=== PATIENT | female | born 1985 | race African-American/Black ===

== ENCOUNTER 2020-02-27 14:04 | Emergency (ER) | payer MEDICAID, SELFPAY ==
[2020-02-27 14:09] VITALS: BP 121/83; PULSE 76; RESP 18; TEMP 36.8; O2SAT 99; BMI 29.5
--- NOTE | 2020-02-27 14:19 | [facility].COUGH ---
Cough Clinic HPI - History of Present Illness HPI:: 35 year old female patient presents to the cough clinic today with a one day history of sore throat and fever to 102. She denies cough and runny nose. 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 Home Medications: Home Medications Medication Instructions Recorded Confirmed Type Azithromycin [Zithromax 250mg 250 mg PO DIRECTED #6 tab 02/27/20 Rx tab] Fluconazole [Diflucan 150mg tab] 150 mg PO ONCE #1 tab 02/27/20 Rx Allergies/Adverse Reactions: Allergies Allergy/AdvReac Type Severity Reaction Status Date / Time penicillin G Allergy Severe Anaphylaxis Verified 11/29/19 11:11 Cough Clinic Triage - Symptoms Fever History: Yes (102) Chills: No Myalgia: No Nasal Drainage: No Sore Throat: Yes Productive Cough: No Non-productive Cough: No Ear or Sinus Pain: No Joint Pain: No Chest Pain: No Rash: No Shortness of Breath: No Nausea or Vomitting: No Headache: Yes Abdominal Pain: No Diarrhea: No - Exposure History Foreign Travel: No Direct Contact with COVID-19 Patient: No - Risk Factors Greater than 60 Years Old: No COPD: No Diabetes: No Heart Disease: No Home Oxygen Use: No Chronic Renal Disease: No Chronic Liver Disease: No Neurologic/Neurodevelopmental/intellectual disability: No Other Chronic Diseases: No If Female, currently : No Current Smoker: No Former Smoker: No Cough Clinic History Other Surgeries: Yes: No Previous Surgery Amputation: No Fractures: No - Social History Smoking Status: Never smoker Alcohol Intake: never Substance Use Type: denies use Occupational Status: employed Family Hx:: No significant family history - Constitutional Constitutional: Denies fatigue - Gastrointestinal Gastrointestingal: Denies: diarrhea Cough Clinic Exam - General General appearance: alert - Head Head exam: atraumatic, normocephalic, normal inspection - Eye Eye exam: Present: normal appearance, PERRL, EOMI - ENT ENT exam: Present: normal exam, mucous membranes moist, TM's normal bilaterally, normal external ear exam - Expanded ENT Exam Throat exam: Present: tonsillar erythema - Neck Neck exam: Present: normal inspection, full ROM, trachea midline, lymphadenopathy. Absent: meningismus - Respiratory Respiratory exam: Present: normal lung sounds bilaterally. Absent: respiratory distress - Cardiovascular Cardiovascular exam: Present: regular rate, normal rhythm. Absent: JVD - Extremities Exam Extremities exam: Present: normal inspection, full ROM, normal capillary refill. Absent: calf tenderness - Neurological Exam Neurological exam: Present: alert, oriented X3 - Skin Skin exam: Present: warm, dry, intact, normal color - Lymphatic Lymphatic Findings: no adenopathy Cough Clinic MDM Vital Signs: 02/27/20 14:09 02/27/20 14:50 Temperature 98.3 F 98.3 F Temperature Source Oral Oral Pulse Rate 76 Pulse Rate [Right Brachial] 76 Respiratory Rate 18 18 Blood Pressure 121/83 Blood Pressure [Right Arm] 121/83 Blood Pressure Mean [Right Arm] 95 Blood Pressure Source Automatic Cuff Blood Pressure Source [Right Arm] Automatic Cuff Blood Pressure Position Sitting Blood Pressure Position [Right Arm] Sitting 02 Sat by Pulse Oximetry 99 Oxygen Delivery Method Room Air - Lab Data Lab results reviewed: Yes: I reviewed the patient's lab results. Lab Results 02/27/20 14:16: WBC 5.9, RBC 4.37, Hgb 12.2, Hct 40.2, MCV 92.0, MCH 28.0, MCHC 30.4 L, RDW 12.3, Plt Count 265, MPV 8.2, Neut % (Auto) 60.9, Lymph % (Auto) 29.0, Callahan % (Auto) 5.7, Eos % (Auto) 3.5, Baso % (Auto) 0.8, Neut # (Auto) 3.6, Lymph # (Auto) 1.7, Callahan # (Auto) 0.3, Eos # (Auto) 0.2, Baso # (Auto) 0.1 02/27/20 14:16: Group A Strep Rapid Negative 02/27/20 14:16: Influenza Type A Ag Negative, Influenza Type B Ag Negative Orders (Tests/Meds): ORDERS Category Date Time Status Strep Scre
[2020-02-27 14:25] LABS: Hematocrit 40.2 % (37.0-47.0); Hemoglobin 12.2 g/dL (12.2-16.2); Mean Corpuscular HGB Conc 30.4 g/dL (31.8-35.4); Mean Platelet Volume 8.2 fl (7.4-10.4); Monocytes % 5.7 % (1.7-9.3); Neutrophils % 60.9 % (37.0-80.0); Platelet Count 265 K/mm3 (142-424); Red Blood Count 4.37 M/mm3 (4.20-5.40); Red Cell Distribution Width 12.3 % (11.5-17.5); White Blood Count 5.9 K/mm3 (4.8-10.8)
[2020-02-27 14:26] LABS: Basophils # 0.1 K/mm3 (0-0.2); Basophils % 0.8 % (0.1-2.0); Eosinophils # 0.2 K/mm3 (0.0-0.4); Eosinophils % 3.5 % (0.1-12.0); Lymphocytes # 1.7 K/mm3 (0.7-4.5); Monocytes # 0.3 K/mm3 (0.1-1.0); Neutrophils # 3.6 K/mm3 (1.8-7.8)
[2020-02-27 14:27] LABS: Strep Scrn Group A (Rapid) Negative (Negative)
[2020-02-27 14:50] VITALS: BP 121/83; PULSE 76; RESP 18; TEMP 36.8; O2SAT 99
== END 2020-02-27 14:53 | disposition home or self-care (01) ==
PROVIDERS: Emergency Provider Family Medicine; PCP Physician Assistant
DX: J03.80 Acute tonsillitis due to other specified organisms (principal)
CPT/HCPCS: 36415; 85025; 87275; 87276; 87430; 99201; 99213

== ENCOUNTER → 2020-03-26 15:05 | Outpatient (CLI) | payer MEDICAID, SELFPAY | PROVIDERS: Visit Provider Physician Assistant | DX: N89.8 Other specified noninflammatory disorders of vagina (principal) | CPT/HCPCS: 87210 ==